=== PATIENT | male | born 1935 | race American Indian/Alaskan Native ===

== ENCOUNTER 2021-06-03 11:23 | Inpatient (IN) ==
[2021-06-03] MEDS ORDERED: 0.9 % SODIUM CHLORIDE 1,000 ML IV ONE ×3 (11:40→13:37)
[2021-06-03 11:58] LABS: POC Calcium, Ionized 1.17 mmEq/L (1.16-1.32); POC Creatinine 1.5 mg/dL (0.6-1.2); POC Potassium 4.9 mEql/L (3.3-5.1)
[2021-06-03 12:07] LABS: POC INR 1.8 (0.8-1.2); POC Pro Time 20.8 sec (11.9-14.5)
--- NOTE | 2021-06-03 12:24 | XRay Report ---
INDICATION: AMS, hypoxia TECHNIQUE: AP portable semiupright chest x-ray COMPARISON: Previous chest x-rays dated 02/28/2020, 12/30/2016 FINDINGS:Suboptimal evaluation due to difficulty in positioning this patient. Lungs:No focal parenchymal infiltrate or mass. Heart, vascular:Heart size is considered to be within normal limits for AP semiupright positioning. No evidence for congestive heart failure Mediastinum, suzanne:No mediastinal widening. No hilar mass Pleura:No pleural fluid. No pleural-based mass or calcification Skeletal:Negative. IMPRESSION: No acute or focal abnormality Interpreted and Authenticated by: Venu Coffman 06/03/21
--- NOTE | 2021-06-03 12:31 | Emergency Department Note ---
HPI General Chief complaint: Shortness of Breath/Dyspnea Stated complaint: Shortness of breath Time Seen by Provider: 06/03/21 11:40 Source: family Mode of arrival: wheelchair Limitations: altered mental status History of Present Illness HPI Narrative: 85-year-old male with past medical history of COPD, CHF, CKD, diabetes, hypertension, chronic bilateral venous stasis edema, and atrial fibrillation on warfarin presenting with cough and altered mental status. Patient reportedly has had about 5 days of cough and congestion. This morning he seemed more short of breath with "rattled breathing" and was more confused than usual. He has a history of COPD and is supposed to be using oxygen at home but is not always compliant. No fever or recent falls. Patient is somnolent in the room and is not able to answer any questions. He reportedly just finished a course of antibiotics for a wound in the buttock area. Related Data Home Medications Medication Instructions Recorded Confirmed brimonidine 0.15 % eye drops 1 drp OPHTHALMIC BID ml 12/08/15 03/14/20 cetirizine 10 mg tablet (All Day 10 mg PO QHS tab 12/08/15 03/14/20 Allergy (cetirizine)) cyanocobalamin (vitamin B-12) 1,000 mcg PO QDAY 12/08/15 03/14/20 1,000 mcg tablet (Vitamin B-12) metformin 500 mg tablet 500 mg PO BID 12/08/15 03/14/20 simvastatin 40 mg tablet 40 mg PO QPM 12/08/15 03/14/20 sitagliptin 100 mg tablet 100 mg PO QDAY 12/08/15 03/14/20 timolol 0.5 % eye drops 1 drp OPHTHALMIC .QD ml 12/08/15 03/14/20 tiotropium bromide 18 mcg capsule 1 cap INHALATION QDAY 12/08/15 03/14/20 with inhalation device (Spiriva with HandiHaler) torsemide 20 mg tablet 20 mg PO QDAY 12/08/15 03/14/20 magnesium L-lactate 84 mg 168 mg PO BID tab 06/11/18 03/14/20 tablet,extended release (MagBid ER) warfarin 2 mg tablet See Rx Instructions PO QDAY tab 06/11/18 03/14/20 carvedilol 3.125 mg tablet 6.25 mg PO BID tab 12/18/18 03/14/20 insulin glargine 100 unit/mL 28 unit SUB-Q QDAY ml 12/18/18 03/14/20 subcutaneous solution lisinopril 2.5 mg tablet 2.5 mg PO QDAY 12/18/18 03/14/20 Previous Rx's Medication Instructions Recorded ergocalciferol (vitamin D2) 1,250 50,000 unit PO QWEEK #10 cap 12/17/17 mcg (50,000 unit) capsule Allergies Allergy/AdvReac Type Severity Reaction Status Date / Time Amoxicillin Allergy Unknown Unknown Verified 06/03/21 11:32 Cefadroxil [From Duricef] Allergy Unknown Unknown Verified 06/03/21 11:32 Rosiglitazone [From Avandia] Allergy Unknown Unknown Verified 06/03/21 11:32 Review of Systems ROS ROS Narrative: Narrative: Limitations: ROS unobtainable due to patients medical condition Constitutional: Denies fever Respiratory: Reports shortness of breath and cough Gastrointestinal: Denies vomiting PFSH Narrative Patient History Narrative: Narrative: Medical/Surgical/Family History All Active Problems (Updated 06/03/21 @ 15:17 by Jose Solis MD) Medication requested (Acute) Hypercapnic respiratory failure (Acute) 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) Hyperkalemia, diminished renal excretion (Chronic) CKD (chronic kidney disease) stage 3, GFR 30-59 ml/min (Chronic) Ptosis of eyelid, right (Chronic) Swelling of right eyelid (Chronic) Shortness of breath (Chronic) Venous stasis (Chronic) Chronic kidney disease due to type 2 diabetes mellitus (Chronic) Open wound of left lower leg (Chronic) Cellulitis (Chronic) Dermatitis (Chronic) Atrial fibrillation (Chronic) History of anticoagulant therapy (Chronic) Hypomagnesemia (Chronic) Edema (Chronic) History of varicose veins (Chronic) B12 deficiency (Chronic) Vitamin D deficiency (Chronic) Abdominal hernia (Chronic) Diabetic peripheral neuropathy (Chronic) Ingrown toenail (Chronic) CHF (congestive heart failure) (Chronic) Chronic obstructive lung disease (Chronic) Pulmonary infarction (Chronic) Type 2 diabetes mellitus, uncontrolled (Chronic) Sleep apnea (Chronic) Severe obesity (Chronic) Hyperlipidemia (Chronic) Essential hypertension (Chronic) Arthritis of hip (Chronic) Arthritis of knee (Chronic) Glaucoma (Chronic) Medical History Abdominal hernia Arthritis of hip Arthritis of knee Atrial fibrillation B12 deficiency Cellulitis CHF (congestive heart failure) Chronic kidney disease due to type 2 diabetes mellitus Chronic obstructive lung disease CKD (chronic kidney disease) stage 3, GFR 30-59 ml/min Dermatitis Diabetic peripheral neuropathy Edema Essential hypertension Glaucoma History of anticoagulant therapy History of varicose veins Hyperkalemia, diminished renal excretion Hyperlipidemia 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 chronic kidney disease due to type 2 diabetes mellitus Hypomagnesemia Ingrown toenail Open wound of left lower leg Ptosis of eyelid, right Pulmonary infarction Secondary hyperparathyroidism of renal origin Severe obesity Shortness of breath Sleep apnea Swelling of right eyelid Type 2 diabetes mellitus, uncontrolled Venous stasis Vitamin D deficiency Surgical History History of biopsy History of colonoscopy History of cystoscopy History of prostate surgery History of total knee arthroplasty S/P debridement Debride Nail/Bed/Fold Family History Other No pertinent family history Social History Smoking Status: Former smoker Alcohol Intake Frequency: does not drink Substance Use: does not use Exam Narrative Narrative: Narrative: General Limitations: altered mental status General appearance: Present other (somnolent, responds to pain, breathing spontaneously and protecting airway) Head Head: Present atraumatic and normocephalic Eye Eye: Present normal appearance, PERRL and EOMI; Absent scleral icterus or conjunctival injection ENT ENT: Present mucous membranes moist Neck Neck: Present normal inspection and trachea midline; Absent lymphadenopathy Chest Chest: Present symmetric chest wall rise Respiratory Respiratory: Present other (diminished BS bilaterally); Absent respiratory distress, wheezes, stridor, accessory muscle use or prolonged expiratory phase Cardiovascular Cardiovascular: Present regular rate and normal rhythm; Absent systolic murmur or diastolic murmur Adbominal Abdominal: Present soft; Absent distention, tenderness, guarding, rebound, rigidity, organomegaly or mass Extremities Extremities: Present other (bilateral LE venous stasis present) Back Back: Present other (Healing scab over the right buttock near the gluteal fold with no erythema, warmth, or underlying fluctuance noted) Neurological Neurological: Present other (somnelent, intermittently arousable; moving all extremities, no facial droop) Skin Skin: Present warm (WNL) and dry Course Vital Signs Vital signs: Vital Signs Temperature 97.6 F 06/03/21 11:23 Pulse Rate 58 L 06/03/21 11:23 Respiratory Rate 20 06/03/21 11:23 Blood Pressure 53/26 06/03/21 11:23 Pulse Oximetry (%) 98 06/03/21 11:23 Temperature 97.6 F 06/03/21 16:06 Pulse Rate 90 06/03/21 16:06 Respiratory Rate 17 06/03/21 16:06 Blood Pressure 111/69 06/03/21 16:06 Pulse Oximetry (%) 97 06/03/21 16:06 MDM MDM Narrative Medical decision making narrative: 85-year-old male presenting with cough and altered mental status. On arrival to the ED patient is somnolent and hypotensive to 70s over 40s. 30mL/kg normal saline bolus ordered. Satting mid 80s on room air, placed on nonrebreather mask. EKG shows afib with no ischemic changes. Initial VBG shows a pH of 7.25, PCO2 of 85, and PO2 of 50. Patient transition to CPAP with improvement in mental status as he now awake and will answer some questions. Labs notable for hyponatremia to 131, JAZZMINE to 1.4, and mild hyperkalemia to 5.2. No peaked T waves on EKG. Lactate is 5.0. Blood cultures ordered. Will start vancomycin and levofloxacin as patient has an allergy to amoxicillin. Chest x-ray shows no focal infiltrate. Ammonia level is 69. INR is 1.7. BNP is 1951. Likely seps is and hypercapnic respiratory failure. Covid and influenza tests are negative. Patient appears to be doing much better on CPAP. Will repeat lactate and ABG after fluids. UA is pending. Blood pressure improving with IV fluids. Plan for reevaluation and admission. 1510: Repeat ABG shows a pH of 7.22 and an increase in PCO2 to 94 with a PO2 of 75. He clinically appears much better and more awake, however given these findings, patient was placed on BiPAP at 14/6. DuoNeb and IV Solu-Medrol o rdered for possible COPD exacerbation. Repeat lactate after 3 L normal saline is 0.7. 1515: Patient is stable on BiPAP, satting 92-96%. Endorsed to Dr. Matias for admission to the ICU. Lab Data Lab results reviewed: Yes I reviewed the patient's lab results. Result diagrams: 06/03/21 11:35 06/03/21 11:35 Labs: Lab Results 06/03/21 06/03/21 06/03/21 Range/Units 11:35 11:35 11:35 WBC 7.7 (4.5-11.0) K/mcL RBC 4.49 L (4.63-6.08) M/mcL Hgb 14.0 (13.7-17.5) g/dL Hct 41.8 (40.1-51.0) % POC Hct (41-55) % MCV 93.1 (80.0-100.0) fL MCH 31.2 (26.0-34.0) pg MCHC 33.5 (31.0-36.0) g/dL RDW 13.8 (11.5-14.5) % Plt Count 170 (140-440) K/mcL MPV 10.0 (7.4-10.4) fL Neut % (Auto) 67.1 (38.0-78.0) % Lymph % (Auto) 18.9 (15.5-49.0) % Holt % (Auto) 12.6 H (1.0-12.0) % Eos % (Auto) 0.9 (0.0-7.0) % Baso % (Auto) 0.5 (0.0-2.0) % Lymph # (Auto) 1.45 L (1.50-4.80) K/mcL Holt # (Auto) 0.97 H (0.10-0.90) K/mcL Eos # (Auto) 0.07 (0.00-0.70) K/mcL Baso # (Auto) 0.04 (0.00-0.30) K/mcL Absolute Neutrophils 5.15 (1.80-8.00) K/mcL POC PT (11.9-14.5) sec PT (11.9-14.5) sec POC INR (0.8-1.2) INR (0.9-1.1) APTT (20.0-37.0) sec VBG Lactic Acid (0.5-2.0) mmol/L POC Sodium (133-145) mEq/L Sodium 131 L (133-145) mmol/L POC Potassium (3.3-5.1) mEql/L Potassium 5.2 H (3.3-5.1) mmol/L POC Chloride (96-108) mEq/L Chloride 90 L (96-108) mmol/L Carbon Dioxide 28 (22-30) mmol/L POC Total CO2 (22-30) mmol/L Anion Gap 13.0 (8.0-16.0) POC BUN (6-20) mg/dL BUN 36 H (8-23) mg/dL Creatinine 1.4 H (0.7-1.2) mg/dL POC Creatinine (0.6-1.2) mg/dL GFR Calculation 45 Glucose 270 H (70-105) mg/dL POC Glucose (70-105) mg/dL Calcium 8.8 (8.6-10.4) mg/dL POC WB Ioniz Calcium (1.16-1.32) mmEq/L Total Bilirubin 1.3 H (0.1-1.0) mg/dL AST 28 (<40) U/L ALT 24 (<40) U/L Alkaline Phosphatase 135 H (39-117) U/L Ammonia (16-60) umol/L Troponin T 0.01 (<0.03) ng/mL NT-Pro-B Natriuret Pep 1951.0 H (<450.0) pg/mL Total Protein 7.6 (5.9-8.4) gm/dL Albumin 3.3 (3.2-5.2) gm/dL Globulin 4.3 H (2.2-3.7) gm/dL Albumin/Globulin Ratio 0.8 L (1.0-2.3) Procalcitonin (<0.10) ng/mL Urine Color Urine Appearance (Clear) Urine pH (5.0-9.0) Ur Specific Hustler (1.000-1.035) Urine Protein (Negative) mg/dL Urine Glucose (UA) (Negative) mg/dL Urine Ketones (Negative) mg/dL Urine Occult Blood (Negative) mg/dL Urine Nitrate (Negative) Urine Bilirubin (Negative) mg/dL Urine Urobilinogen mg/dL Ur Leukocyte Esterase (Negative) /uL Urine RBC (0-3) /hpf Urine WBC (0-4) /hpf Ur Squamous Epith Cells (0-4) /hpf Urine Bacteria (0) /hpf Hyaline Casts (0-2) /lph Urine Mucus (None) /hpf Ur Culture Indicated? Ethyl Alcohol (<0.010) gm/dL 06/03/21 06/03/21 06/03/21 Range/Units 11:35 11:35 11:35 WBC (4.5-11.0) K/mcL RBC (4.63-6.08) M/mcL Hgb (13.7-17.5) g/dL Hct (40.1-51.0) % POC Hct (41-55) % MCV (80.0-100.0) fL MCH (26.0-34.0) pg MCHC (31.0-36.0) g/dL RDW (11.5-14.5) % Plt Count (140-440) K/mcL MPV (7.4-10.4) fL Neut % (Auto) (38.0-78.0) % Lymph % (Auto) (15.5-49.0) % Holt % (Auto) (1.0-12.0) % Eos % (Auto) (0.0-7.0) % Baso % (Auto) (0.0-2.0) % Lymph # (Auto) (1.50-4.80) K/mcL Holt # (Auto) (0.10-0.90) K/mcL Eos # (Auto) (0.00-0.70) K/mcL Baso # (Auto) (0.00-0.30) K/mcL Absolute Neutrophils (1.80-8.00) K/mcL POC PT (11.9-14.5) sec PT 20.4 H (11.9-14.5) sec POC INR (0.8-1.2) INR 1.7 H (0.9-1.1) APTT 36.4 (20.0-37.0) sec VBG Lactic Acid 5.0 H* (0.5-2.0) mmol/L POC Sodium (133-145) mEq/L Sodium (133-145) mmol/L POC Potassium (3.3-5.1) mEql/L Potassium (3.3-5.1) mmol/L POC Chloride (96-108) mEq/L Chloride (96-108) mmol/L Carbon Dioxide (22-30) mmol/L POC Total CO2 (22-30) mmol/L Anion Gap (8.0-16.0) POC BUN (6-20) mg/dL BUN (8-23) mg/dL Creatinine (0.7-1.2) mg/dL POC Creatinine (0.6-1.2) mg/dL GFR Calculation Glucose (70-105) mg/dL POC Glucose (70-105) mg/dL Calcium (8.6-10.4) mg/dL POC WB Ioniz Calcium (1.16-1.32) mmEq/L Total Bilirubin (0.1-1.0) mg/dL AST (<40) U/L ALT (<40) U/L Alkaline Phosphatase (39-117) U/L Ammonia (16-60) umol/L Troponin T (<0.03) ng/mL NT-Pro-B Natriuret Pep (<450.0) pg/mL Total Protein (5.9-8.4) gm/dL Albumin (3.2-5.2) gm/dL Globulin (2.2-3.7) gm/dL Albumin/Globulin Ratio (1.0-2.3) Procalcitonin 0.09 (<0.10) ng/mL Urine Color Urine Appearance (Clear) Urine pH (5.0-9.0) Ur Specific Hustler (1.000-1.035) Urine Protein (Negative) mg/dL Urine Glucose (UA) (Negative) mg/dL Urine Ketones (Negative) mg/dL Urine Occult Blood (Negative) mg/dL Urine Nitrate (Negative) Urine Bilirubin (Negative) mg/dL Urine Urobilinogen mg/dL Ur Leukocyte Esterase (Negative) /uL Urine RBC (0-3) /hpf Urine WBC (0-4) /hpf Ur Squamous Epith Cells (0-4) /hpf Urine Bacteria (0) /hpf Hyaline Casts (0-2) /lph Urine Mucus (None) /hpf Ur Culture Indicated? Ethyl Alcohol (<0.010) gm/dL 06/03/21 06/03/21 06/03/21 Range/Units 11:35 11:35 11:35 WBC (4.5-11.0) K/mcL RBC (4.63-6.08) M/mcL Hgb (13.7-17.5) g/dL Hct (40.1-51.0) % POC Hct 43 (41-55) % MCV (80.0-100.0) fL MCH (26.0-34.0) pg MCHC (31.0-36.0) g/dL RDW (11.5-14.5) % Plt Count (140-440) K/mcL MPV (7.4-10.4) fL Neut % (Auto) (38.0-78.0) % Lymph % (Auto) (15.5-49.0) % Holt % (Auto) (1.0-12.0) % Eos % (Auto) (0.0-7.0) % Baso % (Auto) (0.0-2.0) % Lymph # (Auto) (1.50-4.80) K/mcL Holt # (Auto) (0.10-0.90) K/mcL Eos # (Auto) (0.00-0.70) K/mcL Baso # (Auto) (0.00-0.30) K/mcL Absolute Neutrophils (1.80-8.00) K/mcL POC PT (11.9-14.5) sec PT (11.9-14.5) sec POC INR (0.8-1.2) INR (0.9-1.1) APTT (20.0-37.0) sec VBG Lactic Acid (0.5-2.0) mmol/L POC Sodium 135 (133-145) mEq/L Sodium (133-145) mmol/L POC Potassium 4.9 (3.3-5.1) mEql/L Potassium (3.3-5.1) mmol/L POC Chloride 94 L (96-108) mEq/L Chloride (96-108) mmol/L Carbon Dioxide (22-30) mmol/L POC Total CO2 31 H (22-30) mmol/L Anion Gap (8.0-16.0) POC BUN 38 H (6-20) mg/dL BUN (8-23) mg/dL Creatinine (0.7-1.2) mg/dL POC Creatinine 1.5 H (0.6-1.2) mg/dL GFR Calculation Glucose (70-105) mg/dL POC Glucose 286 H (70-105) mg/dL Calcium (8.6-10.4) mg/dL POC WB Ioniz Calcium 1.17 (1.16-1.32) mmEq/L Total Bilirubin (0.1-1.0) mg/dL AST (<40) U/L ALT (<40) U/L Alkaline Phosphatase (39-117) U/L Ammonia 69 H (16-60) umol/L Troponin T (<0.03) ng/mL NT-Pro-B Natriuret Pep (<450.0) pg/mL Total Protein (5.9-8.4) gm/dL Albumin (3.2-5.2) gm/dL Globulin (2.2-3.7) gm/dL Albumin/Globulin Ratio (1.0-2.3) Procalcitonin (<0.10) ng/mL Urine Color Urine Appearance (Clear) Urine pH (5.0-9.0) Ur Specific Hustler (1.000-1.035) Urine Protein (Negative) mg/dL Urine Glucose (UA) (Negative) mg/dL Urine Ketones (Negative) mg/dL Urine Occult Blood (Negative) mg/dL Urine Nitrate (Negative) Urine Bilirubin (Negative) mg/dL Urine Urobilinogen mg/dL Ur Leukocyte Esterase (Negative) /uL Urine RBC (0-3) /hpf Urine WBC (0-4) /hpf Ur Squamous Epith Cells (0-4) /hpf Urine Bacteria (0) /hpf Hyaline Casts (0-2) /lph Urine Mucus (None) /hpf Ur Culture Indicated? Ethyl Alcohol < 0.010 (<0.010) gm/dL 06/03/21 06/03/21 Range/Units 11:55 14:03 WBC (4.5-11.0) K/mcL RBC (4.63-6.08) M/mcL Hgb (13.7-17.5) g/dL Hct (40.1-51.0) % POC Hct (41-55) % MCV (80.0-100.0) fL MCH (26.0-34.0) pg MCHC (31.0-36.0) g/dL RDW (11.5-14.5) % Plt Count (140-440) K/mcL MPV (7.4-10.4) fL Neut % (Auto) (38.0-78.0) % Lymph % (Auto) (15.5-49.0) % Holt % (Auto) (1.0-12.0) % Eos % (Auto) (0.0-7.0) % Baso % (Auto) (0.0-2.0) % Lymph # (Auto) (1.50-4.80) K/mcL Holt # (Auto) (0.10-0.90) K/mcL Eos # (Auto) (0.00-0.70) K/mcL Baso # (Auto) (0.00-0.30) K/mcL Absolute Neutrophils (1.80-8.00) K/mcL POC PT 20.8 H (11.9-14.5) sec PT (11.9-14.5) sec POC INR 1.8 H (0.8-1.2) INR (0.9-1.1) APTT (20.0-37.0) sec VBG Lactic Acid (0.5-2.0) mmol/L POC Sodium (133-145) mEq/L Sodium (133-145) mmol/L POC Potassium (3.3-5.1) mEql/L Potassium (3.3-5.1) mmol/L POC Chloride (96-108) mEq/L Chloride (96-108) mmol/L Carbon Dioxide (22-30) mmol/L POC Total CO2 (22-30) mmol/L Anion Gap (8.0-16.0) POC BUN (6-20) mg/dL BUN (8-23) mg/dL Creatinine (0.7-1.2) mg/dL POC Creatinine (0.6-1.2) mg/dL GFR Calculation Glucose (70-105) mg/dL POC Glucose (70-105) mg/dL Calcium (8.6-10.4) mg/dL POC WB Ioniz Calcium (1.16-1.32) mmEq/L Total Bilirubin (0.1-1.0) mg/dL AST (<40) U/L ALT (<40) U/L Alkaline Phosphatase (39-117) U/L Ammonia (16-60) umol/L Troponin T (<0.03) ng/mL NT-Pro-B Natriuret Pep (<450.0) pg/mL Total Protein (5.9-8.4) gm/dL Albumin (3.2-5.2) gm/dL Globulin (2.2-3.7) gm/dL Albumin/Globulin Ratio (1.0-2.3) Procalcitonin (<0.10) ng/mL Urine Color Yellow Urine Appearance Clear (Clear) Urine pH 6.0 (5.0-9.0) Ur Specific Hustler 1.008 (1.000-1.035) Urine Protein Negative (Negative) mg/dL Urine Glucose (UA) Negative (Negative) mg/dL Urine Ketones Negative (Negative) mg/dL Urine Occult Blood 0.03 (Negative) mg/dL Urine Nitrate Negative (Negative) Urine Bilirubin Negative (Negative) mg/dL Urine Urobilinogen Negative mg/dL Ur Leukocyte Esterase Negative (Negative) /uL Urine RBC 0 (0-3) /hpf Urine WBC 0 (0-4) /hpf Ur Squamous Epith Cells < 1 (0-4) /hpf Urine Bacteria None (0) /hpf Hyaline Casts 24 H (0-2) /lph Urine Mucus Few A (None) /hpf Ur Culture Indicated? No Ethyl Alcohol (<0.010) gm/dL ED POC Tests ED POC Tests: FELIPA - Influenza A Negative FELIPA - Influenza B Negative FELIPA - SARS Antigen Negative Radiology Data Radiology results reviewed: Yes I reviewed the patient's radiology results. Radiology results narrative: Ordering Physician:Jose Solis M.D. Date of Service:06/03/21 Procedure(s):XR chest 1V portable INDICATION: AMS, hypoxia TECHNIQUE: AP portable semiupright chest x-ray COMPARISON: Previous chest x-rays dated 02/28/2020, 12/30/2016 FINDINGS:Suboptimal evaluation due to difficulty in positioning this patient. Lungs:No focal parenchymal infiltrate or mass. Heart, vascular:Heart size is considered to be within normal limits for AP semiupright positioning. No evidence for congestive heart failure Mediastinum, suzanne:No mediastinal widening. No hilar mass Pleura:No pleural fluid. No pleural-based mass or calcification Skeletal:Negative. IMPRESSION: No acute or focal abnormality Interpreted and Authenticated by: Venu Coffman 06/03/21 Ordering Physician:Jose Solis M.D. Date of Service:06/03/21 Procedure(s):CT head/brain wo con INDICATION: AMS COMPARISON: None. TECHNIQUE: Axial noncontrast-enhanced images through the brain. Sagittally and coronally reformatted images. FINDINGS: Cerebral hemispheres:Negative. No intra-axial abnormality. No intra-axial hematoma. No localized mass effect. There is cerebral atrophy. This is considered age-appropriate for this 85-year-old patient Brainstem and cerebellum:No intra-axial abnormality Extra-axial:No acute hemorrhage. No subdural or epidural hematoma. No subarachnoid hemorrhage. Basilar cisterns are normal Calvarial:No calvarial fracture. No lytic lesion Temporal bones are negative. No destructive lesions Soft tissue, orbits, sinuses:There is near complete opacification of the right maxillary sinus consistent with sinusitis IMPRESSION: 1. No acute intracranial abnormality 2. Right maxillary sinusitis The exam was performed using radiation dose optimization techniques including, but not limited to, automated exposure control, adjustment of the mA and/or kV according to patient size and use of iterative reconstruction technique. Interpreted and Authenticated by: Venu Coffman 06/03/21 EKG Data EKG #1: EKG attestation: Yes I reviewed and interpreted this EKG. and Yes There are no EKG findings of acute coronary syndrome EKG results narrative: Atrial fibrillation at 102 bpm. Occasional PVC noted. No ST elevation or depression. No peaked T waves. Interpretation: no acute changes CC TIME Critical Care Time Critical Care Time: Yes Total Critical Care Time: 30 Attestation: Greater than 30 minutes of critical care time (excluding procedures) were utilized in the evaluation, management, consultation, and treatment of this patient's life-threatening hypercapnic respiratory failure. Discharge Plan Patient/Caregiver Discharge Instructions Pt seen by NURSE WOUND CARE/PA only: No Clinical Impression: Hypercapnic respiratory failure Patient Disposition: Xfer As Inpt ([facility]) Condition: Fair Discharge Date/Time: 06/03/21 15:56
[2021-06-03 12:34] LABS: Basophils # (Auto) 0.04 K/mcL (0.00-0.30); Basophils % (Auto) 0.5 % (0.0-2.0); Eosinophils # (Auto) 0.07 K/mcL (0.00-0.70); Eosinophils % (Auto) 0.9 % (0.0-7.0); Hematocrit 41.8 % (40.1-51.0); Lymphocytes # (Auto) 1.45 K/mcL (1.50-4.80); Lymphocytes % (Auto) 18.9 % (15.5-49.0); Mean Cell Volume 93.1 fL (80.0-100.0); Mean Corpuscular HGB Conc 33.5 g/dL (31.0-36.0); Monocytes # (Auto) 0.97 K/mcL (0.10-0.90); Monocytes % (Auto) 12.6 % (1.0-12.0); Neutrophils % (Auto) 67.1 % (38.0-78.0); Platelet Count 170 K/mcL (140-440); RBC 4.49 M/mcL (4.63-6.08); Red Cell Distribution Width 13.8 % (11.5-14.5); WBC 7.7 K/mcL (4.5-11.0)
[2021-06-03 13:10] LABS: Alcohol, Blood < 10.0 mg/dL; Alcohol,Blood < 0.010 gm/dL (<0.010)
--- NOTE | 2021-06-03 13:10 | Cat Scan Report ---
INDICATION: AMS COMPARISON: None. TECHNIQUE: Axial noncontrast-enhanced images through the brain. Sagittally and coronally reformatted images. FINDINGS: Cerebral hemispheres:Negative. No intra-axial abnormality. No intra-axial hematoma. No localized mass effect. There is cerebral atrophy. This is considered age-appropriate for this 85-year-old patient Brainstem and cerebellum:No intra-axial abnormality Extra-axial:No acute hemorrhage. No subdural or epidural hematoma. No subarachnoid hemorrhage. Basilar cisterns are normal Calvarial:No calvarial fracture. No lytic lesion Temporal bones are negative. No destructive lesions Soft tissue, orbits, sinuses:There is near complete opacification of the right maxillary sinus consistent with sinusitis IMPRESSION: 1. No acute intracranial abnormality 2. Right maxillary sinusitis The exam was performed using radiation dose optimization techniques including, but not limited to, automated exposure control, adjustment of the mA and/or kV according to patient size and use of iterative reconstruction technique. Interpreted and Authenticated by: Venu Coffman 06/03/21
[2021-06-03 13:13] LABS: ALT/SGPT 24 U/L (<40); AST/SGOT 28 U/L (<40); Albumin 3.3 gm/dL (3.2-5.2); Albumin/Globulin Ratio 0.8 (1.0-2.3); Alkaline Phosphatase 135 U/L (39-117); Bilirubin,Total 1.3 mg/dL (0.1-1.0); Blood Urea Nitrogen 36 mg/dL (8-23); Calcium 8.8 mg/dL (8.6-10.4); Carbon Dioxide 28 mmol/L (22-30); Chloride 90 mmol/L (96-108); Globulin 4.3 gm/dL (2.2-3.7); Glomerular Filtration Rate 45; Glucose 270 mg/dL (70-105)
[2021-06-03 13:27] LABS: INR 1.7 (0.9-1.1); Partial Thromboplastin Time 36.4 sec (20.0-37.0); Prothrombin Time 20.4 sec (11.9-14.5)
[2021-06-03] MEDS ORDERED: VANCOMYCIN 1,000 MG in 0.9 % SODIUM CHLORIDE 250 ML IV ONE (13:47)
[2021-06-03] MEDS ORDERED: LEVOFLOXACIN 500 MG/100 ML BAG IV ONE (13:48)
[2021-06-03 14:57] LABS: Appearance,Urine CLEAR (Clear); Bilirubin,Urine Negative (Negative); Color,Urine YELLOW; Culture Indicated,Urine No; Glucose,Urine (UA) Negative (Negative); Ketones,Urine Negative (Negative); Leukocyte Esterase,Urine Negative /uL (Negative); Mucus,Urine FEW /hpf; Nitrate,Urine Negative (Negative); Protein,Urine Negative (Negative); Specific Gravity,Urine 1.008 (1.000-1.035); Urine Blood 0.03 mg/dL (Negative); Urine Hyaline Cast 24 /lph (0-2); Urine RBC 0 /hpf (0-3); Urine Squamous Epithelial Cell < 1 /hpf (0-4); Urine WBC 0 /hpf (0-4); Urobilinogen,Urine Negative
[2021-06-03] MEDS ORDERED: IPRATROPIUM/ALBUTEROL 3 ML AMPUL.NEB NEB ONE (14:59)
[2021-06-03] MEDS ORDERED: methylPREDNISolone SOD SUCC 125 MG/2 ML VIAL IV ONE (14:59)
--- NOTE | 2021-06-03 15:29 | Internal Med History&Physical ---
HPI History of Present Illness Patient information: Note initiated : 06/03/21 at 3:19 pm Service Date, if different from initiated Date: [] Patient: Josr Davila 85 y/o M admitted on for Shortness of breath. Chief Complaint: [] History of present illness: Mr. Davila is a 85 year old M Who came in with shortness of breath. About 4-5 days ago patient developed upper respiratory infection symptoms of increased mild cough and rhinorrhea. Over the course of the next days his cough became worse and was productive of yellow sputum. He became more short of breath. And also felt to have increasing wheeziness. This morning and his daughter saw him and he seemed quite lethargic and confused and was brought in the ED and found to be in 80s on room air. He does have history of COPD and was prescribed oxygen but does not wear it at home. In the ED is found to be hyper toxic and hypercapnic with a CO2 of 85-94 and a pH of 7.22-7.25. He is placed on BiPAP with improvement in his breathing alertness. Patient was also hypotensive when he came in in the 70s systolic which came up quickly with IV fluid. No leukocytosis or fevers. Lactate was quite high at 5. Likely with COPD exacerbation. Factious source unremarkable this time. Chest x-ray unremarkable. Other labs include a mild hyponatremia borderline high hyperkalemia. Creatinine elevated. Review of Systems: Pertinent positives as above plus chills and some diarrhea. Denies headache/fever/nausea/vomiting/chest or abdominal pain. 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) Hyperkalemia, diminished renal excretion (Chronic) CKD (chronic kidney disease) stage 3, GFR 30-59 ml/min (Chronic) Ptosis of eyelid, right (Chronic) Swelling of right eyelid (Chronic) Shortness of breath (Chronic) Venous stasis (Chronic) Chronic kidney disease due to type 2 diabetes mellitus (Chronic) Open wound of left lower leg (Chronic) Cellulitis (Chronic) Dermatitis (Chronic) Atrial fibrillation (Chronic) History of anticoagulant therapy (Chronic) Hypomagnesemia (Chronic) Edema (Chronic) History of varicose veins (Chronic) B12 deficiency (Chronic) Vitamin D deficiency (Chronic) Abdominal hernia (Chronic) Diabetic peripheral neuropathy (Chronic) Ingrown toenail (Chronic) CHF (congestive heart failure) (Chronic) Chronic obstructive lung disease (Chronic) Pulmonary infarction (Chronic) Type 2 diabetes mellitus, uncontrolled (Chronic) Sleep apnea (Chronic) Severe obesity (Chronic) Hyperlipidemia (Chronic) Essential hypertension (Chronic) Arthritis of hip (Chronic) Arthritis of knee (Chronic) Glaucoma (Chronic) Medical History Abdominal hernia Arthritis of hip Arthritis of knee Atrial fibrillation B12 deficiency Cellulitis CHF (congestive heart failure) Chronic kidney disease due to type 2 diabetes mellitus Chronic obstructive lung disease CKD (chronic kidney disease) stage 3, GFR 30-59 ml/min Dermatitis Diabetic peripheral neuropathy Edema Essential hypertension Glaucoma History of anticoagulant therapy History of varicose veins Hyperkalemia, diminished renal excretion Hyperlipidemia 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 chronic kidney disease due to type 2 diabetes mellitus Hypomagnesemia Ingrown toenail Open wound of left lower leg Ptosis of eyelid, right Pulmonary infarction Secondary hyperparathyroidism of renal origin Severe obesity Shortness of breath Sleep apnea Swelling of right eyelid Type 2 diabetes mellitus, uncontrolled Venous stasis Vitamin D deficiency Surgical History History of biopsy History of colonoscopy History of cystoscopy History of prostate surgery History of total knee arthroplasty S/P debridement Debride Nail/Bed/Fold Family History Other No pertinent family history Social History (Updated 03/14/20 @ 10:00 by Milagros Del Real) marital status: alcohol intake frequency: does not drink substance use type: does not use MEDS/ALLERGIES Home Medications and Allergies Home Medications Medication Instructions Recorded Confirmed Type brimonidine 0.15 % eye drops 1 drp OPHTHALMIC BID ml 12/08/15 03/14/20 History cetirizine 10 mg tablet (All Day 10 mg PO QHS tab 12/08/15 03/14/20 History Allergy (cetirizine)) cyanocobalamin (vitamin B-12) 1,000 mcg PO QDAY 12/08/15 03/14/20 History 1,000 mcg tablet (Vitamin B-12) metformin 500 mg tablet 500 mg PO BID 12/08/15 03/14/20 History simvastatin 40 mg tablet 40 mg PO QPM 12/08/15 03/14/20 History timolol 0.5 % eye drops 1 drp OPHTHALMIC .QD ml 12/08/15 03/14/20 History tiotropium bromide 18 mcg capsule 1 cap INHALATION QDAY 12/08/15 03/14/20 History with inhalation device (Spiriva with HandiHaler) torsemide 20 mg tablet 20 mg PO QDAY 12/08/15 03/14/20 History ergocalciferol (vitamin D2) 1,250 50,000 unit PO QWEEK #10 cap 12/17/17 03/14/20 Rx mcg (50,000 unit) capsule magnesium L-lactate 84 mg 168 mg PO BID tab 06/11/18 03/14/20 History tablet,extended release (MagBid ER) warfarin 2 mg tablet See Rx Instructions PO QDAY tab 06/11/18 03/14/20 History carvedilol 3.125 mg tablet 6.25 mg PO BID tab 12/18/18 03/14/20 History insulin glargine 100 unit/mL 28 unit SUB-Q QDAY ml 12/18/18 03/14/20 History subcutaneous solution lisinopril 2.5 mg tablet 2.5 mg PO QDAY 12/18/18 03/14/20 History acetaminophen 300 mg-codeine 30 mg 1 tab PO HS 06/03/21 06/03/21 History tablet sitagliptin 100 mg tablet (Januvia) 1 tab PO QDAY 06/03/21 06/03/21 History Allergies Allergy/AdvReac Type Severity Reaction Status Date / Time Amoxicillin Allergy Unknown Unknown Verified 06/03/21 11:32 Cefadroxil [From Duricef] Allergy Unknown Unknown Verified 06/03/21 11:32 Rosiglitazone [From Avandia] Allergy Unknown Unknown Verified 06/03/21 11:32 EXAM Constitutional Vitals: Temp Pulse Resp BP Pulse Ox 97.6 F 85 21 116/75 96 06/03/21 11:23 06/03/21 15:13 06/03/21 15:13 06/03/21 15:01 06/03/21 14:51 Exam: General: More awake now, no acute Distress Eyes/N/T: EOMI, PERRL, Head/Neck: neck supple, normocephalic atraumatic CV: RRR, No murmurs, normal s1/s2 Pulm: upper airway rhonchi, mild b/l wheezing Abd: soft, nontender, +BS x4 Ext: no clubbing/cyanosis, chronic venous stasis and edema b/l LE Neuro: Alert, no focal deficits, moves all extremities, CN 2-12 grossly intact, symmetrical strength b/l upper/lower, sensations intact b/l upper/lower Skin: warm/dry DATA Data Completed and Pending Labs: Labs from last 24 hours 06/03/21 06/03/21 06/03/21 14:03 11:55 11:35 WBC RBC Hgb Hct POC Hct 43 MCV MCH MCHC RDW Plt Count MPV Neut % (Auto) Lymph % (Auto) [place] % (Auto) Eos % (Auto) Baso % (Auto) Lymph # (Auto) [place] # (Auto) Eos # (Auto) Baso # (Auto) Absolute Neutrophils POC PT 20.8 H PT POC INR 1.8 H INR APTT VBG Lactic Acid POC Sodium 135 Sodium POC Potassium 4.9 Potassium POC Chloride 94 L Chloride Carbon Dioxide POC Total CO2 31 H Anion Gap POC BUN 38 H BUN Creatinine POC Creatinine 1.5 H GFR Calculation Glucose POC Glucose 286 H Calcium POC WB Ioniz Calcium 1.17 Total Bilirubin AST ALT Alkaline Phosphatase Ammonia Troponin T NT-Pro-B Natriuret Pep Total Protein Albumin Globulin Albumin/Globulin Ratio Procalcitonin Urine Color Yellow Urine Appearance Clear Urine pH 6.0 Ur Specific [place] 1.008 Urine Protein Negative Urine Glucose (UA) Negative Urine Ketones Negative Urine Occult Blood 0.03 Urine Nitrate Negative Urine Bilirubin Negative Urine Urobilinogen Negative Ur Leukocyte Esterase Negative Urine RBC 0 Urine WBC 0 Ur Squamous Epith Cells < 1 Urine Bacteria None Hyaline Casts 24 H Urine Mucus Few A Ur Culture Indicated? No Ethyl Alcohol 06/03/21 06/03/21 06/03/21 11:35 11:35 11:35 WBC RBC Hgb Hct POC Hct MCV MCH MCHC RDW Plt Count MPV Neut % (Auto) Lymph % (Auto) [place] % (Auto) Eos % (Auto) Baso % (Auto) Lymph # (Auto) [place] # (Auto) Eos # (Auto) Baso # (Auto) Absolute Neutrophils POC PT PT POC INR INR APTT VBG Lactic Acid POC Sodium Sodium POC Potassium Potassium POC Chloride Chloride Carbon Dioxide POC Total CO2 Anion Gap POC BUN BUN Creatinine POC Creatinine GFR Calculation Glucose POC Glucose Calcium POC WB Ioniz Calcium Total Bilirubin AST ALT Alkaline Phosphatase Ammonia 69 H Troponin T NT-Pro-B Natriuret Pep Total Protein Albumin Globulin Albumin/Globulin Ratio Procalcitonin 0.09 Urine Color Urine Appearance Urine pH Ur Specific [place] Urine Protein Urine Glucose (UA) Urine Ketones Urine Occult Blood Urine Nitrate Urine Bilirubin Urine Urobilinogen Ur Leukocyte Esterase Urine RBC Urine WBC Ur Squamous Epith Cells Urine Bacteria Hyaline Casts Urine Mucus Ur Culture Indicated? Ethyl Alcohol < 0.010 06/03/21 06/03/21 06/03/21 11:35 11:35 11:35 WBC RBC Hgb Hct POC Hct MCV MCH MCHC RDW Plt Count MPV Neut % (Auto) Lymph % (Auto) [place] % (Auto) Eos % (Auto) Baso % (Auto) Lymph # (Auto) [place] # (Auto) Eos # (Auto) Baso # (Auto) Absolute Neutrophils POC PT PT 20.4 H POC INR INR 1.7 H APTT 36.4 VBG Lactic Acid 5.0 H* POC Sodium Sodium POC Potassium Potassium POC Chloride Chloride Carbon Dioxide POC Total CO2 Anion Gap POC BUN BUN Creatinine POC Creatinine GFR Calculation Glucose POC Glucose Calcium POC WB Ioniz Calcium Total Bilirubin AST ALT Alkaline Phosphatase Ammonia Troponin T 0.01 NT-Pro-B Natriuret Pep Total Protein Albumin Globulin Albumin/Globulin Ratio Procalcitonin Urine Color Urine Appearance Urine pH Ur Specific [place] Urine Protein Urine Glucose (UA) Urine Ketones Urine Occult Blood Urine Nitrate Urine Bilirubin Urine Urobilinogen Ur Leukocyte Esterase Urine RBC Urine WBC Ur Squamous Epith Cells Urine Bacteria Hyaline Casts Urine Mucus Ur Culture Indicated? Ethyl Alcohol 06/03/21 06/03/21 11:35 11:35 WBC 7.7 RBC 4.49 L Hgb 14.0 Hct 41.8 POC Hct MCV 93.1 MCH 31.2 MCHC 33.5 RDW 13.8 Plt Count 170 MPV 10.0 Neut % (Auto) 67.1 Lymph % (Auto) 18.9 [place] % (Auto) 12.6 H Eos % (Auto) 0.9 Baso % (Auto) 0.5 Lymph # (Auto) 1.45 L [place] # (Auto) 0.97 H Eos # (Auto) 0.07 Baso # (Auto) 0.04 Absolute Neutrophils 5.15 POC PT PT POC INR INR APTT VBG Lactic Acid POC Sodium Sodium 131 L POC Potassium Potassium 5.2 H POC Chloride Chloride 90 L Carbon Dioxide 28 POC Total CO2 Anion Gap 13.0 POC BUN BUN 36 H Creatinine 1.4 H POC Creatinine GFR Calculation 45 Glucose 270 H POC Glucose Calcium 8.8 POC WB Ioniz Calcium Total Bilirubin 1.3 H AST 28 ALT 24 Alkaline Phosphatase 135 H Ammonia Troponin T NT-Pro-B Natriuret Pep 1951.0 H Total Protein 7.6 Albumin 3.3 Globulin 4.3 H Albumin/Globulin Ratio 0.8 L Procalcitonin Urine Color Urine Appearance Urine pH Ur Specific [place] Urine Protein Urine Glucose (UA) Urine Ketones Urine Occult Blood Urine Nitrate Urine Bilirubin Urine Urobilinogen Ur Leukocyte Esterase Urine RBC Urine WBC Ur Squamous Epith Cells Urine Bacteria Hyaline Casts Urine Mucus Ur Culture Indicated? Ethyl Alcohol A/P Narrative A/P Narrative: A: *Acute hypoxic/hypercapnic respiratory failure: Likely 2/2 AECOPD -on bipap -CXR neg *Encephalopathy: 2/2 above *AECOPD (is prescribed home O2 but does not wear) *Lactic acidosis: 2/2 above *Hypotension: Resolved in ED *Hyponatremia, mild: *Hyperkalemia, mild: *A. fib: On BB/warfarin *CKD III: *HTN: On Coreg/lisinopril *DM w/neuropathy: *Venous stasis LE's: P: -Bipap, wean -vbg and f/u lactate -steroids(wean), nebs, IS/Acapella -Empiric antibiotics -r/o thrombosis with dimer, -Follow-up electrolytes and renal function -Hold home torsemide -cont BB as long as BP remains stable -basal and SSI, hold metformin - -PT/OT -CM for placement needs -Home medication reconciliation -ppx: Warfarin per pharmacy Time Spent With Patient Time: Total time spent is greater than 50% in coordination of care (as documented) at patient's floor/unit and/or counseling patient: Total time spent with greater than 50% in coordination of care (as documented) at patient's floor/unit and/or counseling patient:: Greater than 70 minutes
[2021-06-03] MEDS ORDERED: POTASSIUM CHLORIDE 40 MEQ in DEXTROSE 5% IN WATER 500 ML IV PRN (16:20)
[2021-06-03] MEDS ORDERED: ACETAMINOPHEN 325 MG TABLET PO PRN (16:20)
[2021-06-03] MEDS ORDERED: DEXTROSE 31 GM ORAL.SUSP PO PRN (16:20)
[2021-06-03] MEDS ORDERED: POLYETHYLENE GLYCOL 3350 17 GM PACKET PO PRN (16:20)
[2021-06-03] MEDS ORDERED: ONDANSETRON 4 MG/2 ML VIAL IV PRN (16:20)
[2021-06-03] MEDS ORDERED: METOCLOPRAMIDE 10 MG/2 ML VIAL IV PRN (16:20)
[2021-06-03] MEDS ORDERED: MAGNESIUM SULFATE 2 GM/50 ML BAG IV PRN (16:20)
[2021-06-03] MEDS ORDERED: IPRATROPIUM/ALBUTEROL 3 ML AMPUL.NEB NEB PRN (16:20)
[2021-06-03] MEDS ORDERED: SENNOSIDES 1 TABLET PO PRN (16:20)
[2021-06-03] MEDS ORDERED: METOPROLOL TARTRATE 5 MG/5 ML VIAL IV PRN (16:20)
[2021-06-03] MEDS ORDERED: POTASSIUM CHLORIDE 20 MEQ TABLET PO PRN ×2 (16:20)
[2021-06-03] MEDS ORDERED: DEXTROSE 50% 50 ML VIAL IV PRN (16:20)
[2021-06-03 16:53] LABS: Hemoglobin A1C 7.5 % Hgb (4.0-6.0)
--- NOTE | 2021-06-03 17:55 | Ultrasound Report ---
INDICATION: r/o dvt COMPARISON: None. TECHNIQUE: Grayscale and color flow Doppler spectral imaging of the deep venous system in both lower extremities. FINDINGS: Negative examination. No evidence for deep venous thrombosis. Negative bilateral common femoral veins, femoral veins, popliteal veins. Posterior tibial veins and peroneal veins are negative. Greater and lesser saphenous veins are negative. IMPRESSION: Negative examination for deep venous thrombosis, bilateral lower extremities. Interpreted and Authenticated by: Venu Coffman 06/03/21
[2021-06-03] MEDS ORDERED: ENOXAPARIN 100 MG/ML SYRINGE SQ ONE (18:00)
[2021-06-03] MEDS: IPRATROPIUM/ALBUTEROL 3 ML AMPUL.NEB NEB SCH (18:31)
[2021-06-03] MEDS: INSULIN LISPRO 1 UNIT/0.01 ML UNIT SQ SCH ×2 (18:35→21:34)
[2021-06-03] MEDS ORDERED: WARFARIN 2 MG TABLET PO ONE (19:00)
[2021-06-03] MEDS: AZITHROMYCIN 500 MG in DEXTROSE 5% IN WATER 250 ML IV SCH (19:13)
[2021-06-03] MEDS ORDERED: LACTATED RINGERS 250 ML IV ONE (20:27)
[2021-06-03] MEDS: methylPREDNISolone SOD SUCC 125 MG/2 ML VIAL IV SCH (21:33)
[2021-06-03] MEDS: 0.9 % SODIUM CHLORIDE 10 ML SYRINGE IV SCH (21:33)
[2021-06-03] MEDS ORDERED: LORATADINE 10 MG TABLET PO PRN (21:38)
[2021-06-03] MEDS ORDERED: ACETAMINOPHEN W/CODEINE #3 1 TABLET PO PRN (21:38)
[2021-06-03] MEDS ORDERED: INSULIN GLARGINE, HUMAN 1 UNIT/0.01 ML SQ ONE (22:25)
[2021-06-03] MEDS: SIMVASTATIN 40 MG TABLET PO SCH (22:25)
[2021-06-03] MEDS: INSULIN GLARGINE, HUMAN 1 UNIT/0.01 ML SQ SCH (22:26)
[2021-06-03] MEDS: OSELTAMIVIR PHOSPHATE 75 MG CAPSULE PO SCH (23:04)
[2021-06-04] MEDS: IPRATROPIUM/ALBUTEROL 3 ML AMPUL.NEB NEB SCH ×4 (00:59→18:45)
[2021-06-04] MEDS: 0.9 % SODIUM CHLORIDE 10 ML SYRINGE IV SCH ×3 (05:16→22:05)
[2021-06-04] MEDS: methylPREDNISolone SOD SUCC 125 MG/2 ML VIAL IV SCH (05:16)
[2021-06-04 07:15] LABS: INR 1.8 (0.9-1.1)
[2021-06-04 07:37] LABS: ALT/SGPT 29 U/L (<40); AST/SGOT 33 U/L (<40); Albumin 2.4 gm/dL (3.2-5.2); Albumin/Globulin Ratio 0.6 (1.0-2.3); Alkaline Phosphatase 123 U/L (39-117); Bilirubin,Direct 0.3 mg/dL (<0.3); Bilirubin,Total 0.7 mg/dL (0.1-1.0); Blood Urea Nitrogen 33 mg/dL (8-23); Calcium 8.2 mg/dL (8.6-10.4); Carbon Dioxide 28 mmol/L (22-30); Chloride 99 mmol/L (96-108); Globulin 3.9 gm/dL (2.2-3.7); Glomerular Filtration Rate 67; Glucose 138 mg/dL (70-105); Lactate Dehydrogenase 174 U/L (135-225); Phosphorous 3.5 mg/dL (2.5-4.5); Triglycerides 62 mg/dL (<150); Uric Acid 9.2 mg/dL (2.5-8.0)
[2021-06-04] MEDS ORDERED: MAGNESIUM SULFATE 2 GM/50 ML BAG IV ONE (07:59)
--- NOTE | 2021-06-04 08:02 | Internal Med Progress Note ---
SUBJECTIVE Subjective Patient information: Note initiated : 06/04/21 at 7:51 am Service Date, if different from initiated Date: [] Patient: Josr Davila 85 y/o M admitted on 06/03/21 for Shortness of breath. Chief Complaint: [] Interval history: History of present illness: Mr. Davila is a 85 year old M Who came in with shortness of breath. About 4-5 days ago patient developed upper respiratory infection symptoms of increased mild cough and rhinorrhea. Over the course of the next days his cough became worse and was productive of yellow sputum. He became more short of breath. And also felt to have increasing wheeziness. This morning and his daughter saw him and he seemed quite lethargic and confused and was brought in the ED and found to be in 80s on room air. He does have history of COPD and was prescribed oxygen but does not wear it at home. In the ED is found to be hyper toxic and hypercapnic with a CO2 of 85-94 and a pH of 7.22-7.25. He is placed on BiPAP with improvement in his breathing alertness. Patient was also hypotensive when he came in in the 70s systolic which came up quickly with IV fluid. No leukocytosis or fevers. Lactate was quite high at 5. Likely with COPD exacerbation. Factious source unremarkable this time. Chest x-ray unremarkable. Other labs include a mild hyponatremia borderline high hyperkalemia. Creatinine elevated. 06/04 Patient feeling better today. Now on nasal cannula. Flu a positive and started on Tamiflu. Magnesium low. Creatinine improved. BUN still elevated. Review of Systems: denies headache/fever/chills/nausea/vomiting/chest or abdominal pain/diarrhea. Otherwise see above. Constitutional Vitals: Vital Signs Temp Pulse Resp BP Pulse Ox 97.6 F 90 16 105/76 93 06/03/21 16:06 06/04/21 07:44 06/04/21 07:44 06/04/21 06:01 06/04/21 07:44 Period Temp Pulse Resp BP Sys/Seay Pulse Ox Last 24 Hr 97.6 F-97.6 F 30-125 14-34 53-131/26-87 90-100 Intake and Output 06/03/21 06/04/21 06/04/21 21:59 05:59 13:59 Intake Total 1850 200 Output Total 750 650 Balance 1100 -450 Weight 101.86 kg Intake & Output: Intake & Output 06/03/21 06/04/21 06/04/21 21:59 05:59 13:59 Intake Total 1850 200 Output Total 750 650 Balance 1100 -450 Weight 101.86 kg Intake: IV 1850 Sodium Chloride 0.9% 1,000 ml @ 1000 Wide Open IV BOLUS ONE Rx#: [id number] Zithromax 500 mg In Dextrose 5% 250 in Water 250 ml @ 250 mls/hr IV Q24H [facility] Rx#:[id number] Lactated Ringers 250 ml @ Wide 250 Open IV BOLUS ONE Rx#: [id number] Vancomycin 1,000 mg In Sodium 250 Chloride 0.9% 250 ml @ 250 mls/ hr IV ONCE ONE Rx#:[id number] Oral 200 Output: Urine Catheter Amount 350 500 Void Amount 400 150 Uretheral ([place]) 400 Other: Urine Appearance Clear Clear Uretheral ([facility]) Clear Clear Urine Color Bright Yellow Bright Yellow Uretheral ([facility]) Bright Yellow Bright Yellow Urine Odor Normal Normal Exam: General: More awake now, no acute Distress, obese Eyes/N/T: EOMI, Head/Neck: neck supple, CV: RRR, No murmurs, Pulm: clear, no wheezing today Abd: soft, nontender, +BS x4 Ext: no clubbing/cyanosis, chronic venous stasis and edema b/l LE Neuro: Alert, no focal deficits, moves all extremities, Skin: warm/dry OBJ DATA Labs CBC & Chem 7: 06/03/21 11:35 06/04/21 06:05 Labs: Abnormal Lab Results 06/04/21 06/04/21 06/03/21 06:05 06:05 14:03 RBC [place] % (Auto) Lymph # (Auto) [place] # (Auto) POC PT PT 22.0 H POC INR INR 1.8 H D-Dimer VBG Lactic Acid Sodium Potassium POC Chloride Chloride POC Total CO2 POC BUN BUN 33 H Creatinine POC Creatinine Glucose 138 H POC Glucose Hemoglobin A1c Uric Acid 9.2 H Calcium 8.2 L Magnesium 1.5 L Total Bilirubin Direct Bilirubin 0.3 H Alkaline Phosphatase 123 H Ammonia NT-Pro-B Natriuret Pep Albumin 2.4 L Globulin 3.9 H Albumin/Globulin Ratio 0.6 L Hyaline Casts 24 H Urine Mucus Few A 06/03/21 06/03/21 06/03/21 11:59 11:59 11:55 RBC [place] % (Auto) Lymph # (Auto) [place] # (Auto) POC PT 20.8 H PT POC INR 1.8 H INR D-Dimer 2.30 H VBG Lactic Acid Sodium Potassium POC Chloride Chloride POC Total CO2 POC BUN BUN Creatinine POC Creatinine Glucose POC Glucose Hemoglobin A1c 7.5 H Uric Acid Calcium Magnesium Total Bilirubin Direct Bilirubin Alkaline Phosphatase Ammonia NT-Pro-B Natriuret Pep Albumin Globulin Albumin/Globulin Ratio Hyaline Casts Urine Mucus 06/03/21 06/03/21 06/03/21 11:35 11:35 11:35 RBC [place] % (Auto) Lymph # (Auto) [place] # (Auto) POC PT PT 20.4 H POC INR INR 1.7 H D-Dimer VBG Lactic Acid Sodium Potassium POC Chloride 94 L Chloride POC Total CO2 31 H POC BUN 38 H BUN Creatinine POC Creatinine 1.5 H Glucose POC Glucose 286 H Hemoglobin A1c Uric Acid Calcium Magnesium Total Bilirubin Direct Bilirubin Alkaline Phosphatase Ammonia 69 H NT-Pro-B Natriuret Pep Albumin Globulin Albumin/Globulin Ratio Hyaline Casts Urine Mucus 06/03/21 06/03/21 06/03/21 11:35 11:35 11:35 RBC 4.49 L [place] % (Auto) 12.6 H Lymph # (Auto) 1.45 L [place] # (Auto) 0.97 H POC PT PT POC INR INR D-Dimer VBG Lactic Acid 5.0 H* Sodium 131 L Potassium 5.2 H POC Chloride Chloride 90 L POC Total CO2 POC BUN BUN 36 H Creatinine 1.4 H POC Creatinine Glucose 270 H POC Glucose Hemoglobin A1c Uric Acid Calcium Magnesium Total Bilirubin 1.3 H Direct Bilirubin Alkaline Phosphatase 135 H Ammonia NT-Pro-B Natriuret Pep 1951.0 H Albumin Globulin 4.3 H Albumin/Globulin Ratio 0.8 L Hyaline Casts Urine Mucus Meds: Medications Acetaminophen (Acetaminophen 325 Mg Tablet) 650 mg PO Q6HP PRN; Protocol PRN Reason: Per Pain Protocol/Fever > 101 Acetaminophen/Codeine Phosphate (Acetaminophen W/Codeine #3 1 Tablet) 1 tab PO HSP PRN; Protocol PRN Reason: headache/pain Albuterol/Ipratropium (Ipratropium/Albuterol 3 Ml Ampul.Neb) 3 ml NEB Q6HRT HERMILO Stop: 06/05/21 13:01 Last Admin: 06/04/21 07:41 Dose: 3 ml Documented by: Albuterol/Ipratropium (Ipratropium/Albuterol 3 Ml Ampul.Neb) 3 ml NEB Q4HP PRN PRN Reason: Shortness Of Breath Dextrose (Dextrose 50% 50 Ml Vial) 0 ml IV UD PRN PRN Reason: Per Sliding Scale Diagnostic Test (Pha) (Accu-Chek 1 Each Strip) 1 each FS [facility] Last Admin: 06/03/21 21:20 Dose: 1 each Documented by: Glucose (Dextrose 31 Gm Oral.Susp) 15 gm PO PRN PRN PRN Reason: Hypoglycemia Potassium Chloride 40 meq/ (Dextrose) 520 mls @ 130 mls/hr IV UD PRN PRN Reason: Potassium < 3 Magnesium Sulfate (Magnesium Sulfate) 2 gm in 50 mls @ 50 mls/hr IV UD PRN PRN Reason: Magnesium </= 1.6 Azithromycin 500 mg/ Dextrose 250 mls @ 250 mls/hr IV Q24H [facility]; Protocol Stop: 06/05/21 17:19 Last Infusion: 06/03/21 21:35 Dose: Infused Documented by: Insulin Glargine (Insulin Glargine, Human 1 Unit/0.01 Ml) 24 unit SQ QDAY [facility] Last Admin: 06/03/21 22:26 Dose: 24 units Documented by: Insulin Human Lispro (Insulin Lispro 1 Unit/0.01 Ml Unit) 0 unit SQ [facility]; Protocol Last Admin: 06/03/21 21:34 Dose: 4 units Documented by: Loratadine (Loratadine 10 Mg Tablet) 10 mg PO HSP PRN PRN Reason: Allergic Reaction Methylprednisolone Sodium Succinate (Methylprednisolone Sod Succ 125 Mg/2 Ml Vial) 62.5 mg IV Q8 [facility] Last Admin: 06/04/21 05:16 Dose: 62.5 mg Documented by: Metoclopramide HCl (Metoclopramide 10 Mg/2 Ml Vial) 10 mg IV Q6HP PRN PRN Reason: Nausea And Vomiting Metoprolol Tartrate (Metoprolol Tartrate 5 Mg/5 Ml Vial) 5 mg IV Q2HP PRN PRN Reason: Tachyarrhythmias HR>110 Ondansetron HCl (Ondansetron 4 Mg/2 Ml Vial) 4 mg IV Q4HP PRN PRN Reason: Nausea And Vomiting Oseltamivir Phosphate (Oseltamivir Phosphate 75 Mg Capsule) 75 mg PO BID [facility] Last Admin: 06/03/21 23:04 Dose: 75 mg Documented by: Pantoprazole Sodium (Pantoprazole 40 Mg Tablet) 40 mg PO QAMAC [facility] Polyethylene Glycol (Polyethylene Glycol 3350 17 Gm Packet) 17 gm PO DAILYP PRN PRN Reason: Constipation Potassium Chloride (Potassium Chloride 20 Meq Tablet) 40 meq PO UD PRN PRN Reason: Potssium is 3-3.5 Potassium Chloride (Potassium Chloride 20 Meq Tablet) 40 meq PO UD PRN PRN Reason: Potassium < 3 Senna (Sennosides 1 Tablet) 2 tab PO DAILYP PRN PRN Reason: Constipation Simvastatin (Simvastatin 40 Mg Tablet) 20 mg PO QPM [facility] Last Admin: 06/03/21 22:25 Dose: Not Given Documented by: Sitagliptin Phosphate (Sitagliptin 100 Mg Tablet) 100 mg PO QDAY [facility] Sodium Chloride (0.9 % Sodium Chloride 10 Ml Syringe) 10 ml IV Q8 [facility] Last Admin: 06/04/21 05:16 Dose: 10 ml Documented by: Warfarin Sodium (Warfarin Per Pharmacy) 1 order PO UD [facility] A/P Narrative A/P Narrative: A: *Acute hypoxic/hypercapnic respiratory failure: Likely 2/2 AECOPD -on bipap now on 2LNC -CXR neg *AECOPD (is prescribed home O2 but does not wear): likely triggered by Influenza A or HMPV *Flu A(+) & Human metapnpeumovirus(+): *Encephalopathy: 2/2 above, appears baseline now *Lactic acidosis: 2/2 above, resolved *Hypotension: Resolved in ED *Hyponatremia, mild: *Hyperkalemia, mild: *Hypomag: *A. fib: On BB/warfarin -INR subtherapeutic *JAZZMINE on CKD III: *HTN: On Coreg/lisinopril *DM w/neuropathy: A1c 7.5 *Venous stasis LE's: P: -O2 wean -steroids(wean), nebs, IS/Acapella -vbg and f/u lactate -Tamilfu -Empiric antibiotics -Follow-up electrolytes and renal function -Hold home torsemide -hold coreg/ACEI for low BP -basal and SSI, hold metformin -PT/OT -CM for placement needs -ppx: Warfarin per pharmacy, dose of lovenox yesterday Time Spent With Patient Time: Total time spent is greater than 50% in coordination of care (as documented) at patient's floor/unit and/or counseling patient: Total time spent with greater than 50% in coordination of care (as documented) at patient's floor/unit and/or counseling patient:: 25 - 35 minutes
[2021-06-04] MEDS: PANTOPRAZOLE 40 MG TABLET PO SCH (08:07)
[2021-06-04] MEDS: INSULIN GLARGINE, HUMAN 1 UNIT/0.01 ML SQ SCH (08:22)
[2021-06-04] MEDS: INSULIN LISPRO 1 UNIT/0.01 ML UNIT SQ SCH ×4 (08:22→22:04)
[2021-06-04] MEDS: sitaGLIPtin 100 MG TABLET PO SCH (08:23)
[2021-06-04] MEDS: OSELTAMIVIR PHOSPHATE 75 MG CAPSULE PO SCH ×2 (08:23→22:04)
[2021-06-04 08:51] LABS: ABG Methemoglobin 0.3 % (0.4-1.5); Total Hemoglobin 14.4 gm/Dl (13.5-16.5); VBG Base Excess 2 (-2-3); VBG HCO3 28.2 mmol/L (24.0-28.0); VBG Oxygen Saturation 93.4 % (40.0-70.0); VBG PCO2 51.3 mmHg (41.0-51.0); VBG PH 7.36 U (7.32-7.42); VBG Total CO2 29.8 mmol/L (25.0-29.0)
[2021-06-04] MEDS: AZITHROMYCIN 500 MG in DEXTROSE 5% IN WATER 250 ML IV SCH (12:48)
--- NOTE | 2021-06-04 13:40 | EKG ---
[facility] Test Date: 2021-06-03 Pat Name: Josr Davila Department: ED Room: Gender: Male [employer] Man: AW : [id number] Requested By: Jose Solis Order Number: [id number] Reading MD: Delfino Negrete Measurements Intervals [place] Rate: 102 P: [place]: QRS: 90 QRSD: 108 T: -43 QT: 360 QTc: 469 Interpretive Statements Atrial fibrillation Electronically Signed On 06-04-2021 13:40:00 PDT by Delfino Negrete /store/[email or web address]/[id number]
[2021-06-04] MEDS ORDERED: methylPREDNISolone SOD SUCC 125 MG/2 ML VIAL IV SCH (14:00)
--- NOTE | 2021-06-04 15:30 | Discharge Summary ---
Discharge Provider Provider Patient information: Note initiated : 06/04/21 at 3:28 pm Service Date, if different from initiated Date: [] Patient: Josr Davila 85 y/o M admitted on 06/03/21 for Shortness of breath. Chief Complaint: [] Date of admission: 06/03/21 15:56 Discharge date: 06/06/21 Primary care physician: MIRACLE Rogers Consults: 06/03/21 Consult to Physician [CONS] Stat Comment: Consulting Provider: Fortino Matias Reason For Exam: Physician to Consult Discharge Meds Discharge Medications Home Medications brimonidine 0.15 % eye drops 1 drp OPHTHALMIC BID ml 12/08/15 [History Confirmed 06/04/21 Last Taken Unknown] cyanocobalamin (vitamin B-12) 1,000 mcg tablet (Vitamin B-12) 1,000 mcg PO QDAY 12/08/15 [History Confirmed 06/03/21 Last Taken 06/03/21 08:00] simvastatin 40 mg tablet 20 mg PO QPM 12/08/15 [History Confirmed 06/03/21 Last Taken 06/02/21 21:00] timolol 0.5 % eye drops 1 drp OPHTHALMIC .QD ml 12/08/15 [History Confirmed 06/04/21 Last Taken Unknown] torsemide 20 mg tablet 20 mg PO QDAY 12/08/15 [History Confirmed 06/03/21 Last Taken 06/03/21 08:00] ergocalciferol (vitamin D2) 1,250 mcg (50,000 unit) capsule 50,000 unit PO QWEEK #10 cap 12/17/17 [Rx Confirmed 06/03/21 Last Taken 06/03/21 08:00] warfarin 2 mg tablet See Rx Instructions PO QDAY tab 06/11/18 [History Confirmed 06/04/21 Last Taken 06/03/21 08:00] carvedilol 3.125 mg tablet 6.25 mg PO BID tab 12/18/18 [History Confirmed 06/03/21 Last Taken 06/03/21 08:00] insulin glargine 100 unit/mL subcutaneous solution 24 unit SUB-Q QDAY ml 12/18/18 [History Confirmed 06/03/21 Last Taken 06/02/21] lisinopril 2.5 mg tablet 2.5 mg PO QDAY 12/18/18 [History Confirmed 06/03/21 Last Taken 06/02/21 08:00] acetaminophen 300 mg-codeine 30 mg tablet 1 tab PO HS 06/03/21 [History Confirmed 06/03/21 Last Taken Unknown] loratadine 10 mg tablet (Allergy Relief (loratadine)) 10 mg PO HS 06/03/21 [History Confirmed 06/03/21 Last Taken 06/02/21 21:00] sitagliptin 100 mg tablet (Januvia) 1 tab PO QDAY 06/03/21 [History Confirmed 06/03/21 Last Taken 06/03/21 08:00] oseltamivir 75 mg capsule (Tamiflu) 75 mg PO BID 3 Days #6 cap 06/04/21 [Rx Last Taken Unknown] prednisone 10 mg tablet 40 mg PO QDAY #1 tab 06/04/21 [Rx Last Taken Unknown] albuterol sulfate 90 mcg/actuation aerosol inhaler 2 puff INHALATION Q6H PRN #8.5 g 06/06/21 [Rx Last Taken Unknown] COURSE Hospital Course Hospital course: History of present illness: Mr. Davila is a 85 year old M Who came in with shortness of breath. About 4-5 days ago patient developed upper respiratory infection symptoms of increased mild cough and rhinorrhea. Over the course of the next days his cough became worse and was productive of yellow sputum. He became more short of breath. And also felt to have increasing wheeziness. This morning and his daughter saw him and he seemed quite lethargic and confused and was brought in the ED and found to be in 80s on room air. He does have history of COPD and was prescribed oxygen but does not wear it at home. In the ED is found to be hyper toxic and hypercapnic with a CO2 of 85-94 and a pH of 7.22-7.25. He is placed on BiPAP with improvement in his breathing alertness. Patient was also hypotensive when he came in in the 70s systolic which came up quickly with IV fluid. No leukocytosis or fevers. Lactate was quite high at 5. Likely with COPD exacerbation. Factious source unremarkable this time. Chest x-ray unremarkable. Other labs include a mild hyponatremia borderline high hyperkalemia. Creatinine elevated. 06/04 Patient feeling better today. Now on nasal cannula. Flu a positive and started on Tamiflu. Magnesium low. Creatinine improved. BUN still elevated. 06/05 Patient is on 3 L nasal cannula this morning but good sats. Patient feels like his breathing is close to baseline. Occasional cough. Patient does state he was prescribed oxygen at home but does not wear. He does not check his home oxygen. 06/06 Patient on 2 L with sats mid 90s, will decrease O2 to keep low 90s. Instruction on use of home oxygen as previously prescribed. patient high risk for readmission given age and comorbidities *Acute hypoxic/hypercapnic respiratory failure: Likely 2/2 AECOPD *AECOPD (is prescribed home O2 but does not wear): likely triggered by Influenza A or HMPV *Flu A(+) & Human metapnpeumovirus(+): *Encephalopathy: 2/2 above, appears baseline now *Lactic acidosis: 2/2 above, resolved *Hypotension: Resolved in ED *Hyponatremia, mild: *Hyperkalemia, mild: *Hypomag: *A. 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 fib acute kidney injury hypertension diabetes venous stasis Time Spent with Patient Time attestation: Total time spent providing and/or coordinating discharge services: Time spent: Greater than 30 minutes EXAM Constitutional Vitals: Temp Pulse Resp BP Pulse Ox 97.1 F 96 H 18 139/71 94 06/04/21 13:45 06/04/21 14:09 06/04/21 14:09 06/04/21 13:45 06/04/21 14:09 Discharge Data Data Completed and Pending Labs on day of discharge: Labs from last 24 hours 06/04/21 06/04/21 06/04/21 08:26 06:05 06:05 PT 22.0 H INR 1.8 H D-Dimer ABG Methemoglobin 0.3 L VBG pH 7.36 VBG pCO2 51.3 H VBG pO2 89.0 H VBG HCO3 28.2 H VBG Total CO2 29.8 H VBG O2 Saturation 93.4 H VBG Base Excess 2 VBG Lactic Acid 0.9 Carboxyhemoglobin 3.4 H Total Hemoglobin 14.4 Sodium Potassium Chloride Carbon Dioxide Anion Gap BUN Creatinine GFR Calculation Glucose Hemoglobin A1c Estim Average Glucose Uric Acid Calcium Phosphorus Magnesium Total Bilirubin Direct Bilirubin GGT AST ALT Alkaline Phosphatase Lactate Dehydrogenase Total Protein Albumin Globulin Albumin/Globulin Ratio Triglycerides 06/04/21 06/03/21 06/03/21 06:05 11:59 11:59 PT INR D-Dimer 2.30 H ABG Methemoglobin VBG pH VBG pCO2 VBG pO2 VBG HCO3 VBG Total CO2 VBG O2 Saturation VBG Base Excess VBG Lactic Acid Carboxyhemoglobin Total Hemoglobin Sodium 135 Potassium 4.5 Chloride 99 Carbon Dioxide 28 Anion Gap 8.0 BUN 33 H Creatinine 1.0 GFR Calculation 67 Glucose 138 H Hemoglobin A1c 7.5 H Estim Average Glucose 169 Uric Acid 9.2 H Calcium 8.2 L Phosphorus 3.5 Magnesium 1.5 L Total Bilirubin 0.7 Direct Bilirubin 0.3 H GGT 45 AST 33 ALT 29 Alkaline Phosphatase 123 H Lactate Dehydrogenase 174 Total Protein 6.3 Albumin 2.4 L Globulin 3.9 H Albumin/Globulin Ratio 0.6 L Triglycerides 62 Preliminary micro results at discharge 06/03/21 12:00 Blood Culture - Preliminary Blood 06/03/21 11:40 Blood Culture - Preliminary Blood Discharge Plan Patient/Caregiver Discharge Instructions Activity: increase activity as tolerated Diet: Consistent Carbohydrate Activity Restrictions/Additional Instructions: Use your home oxygen. Also monitor your oxygen saturations several times a day and keep a log and bring to PCP. Take your blood pressure twice daily and keep a log. If your systolic blood pressure is less than 110 consistently then call your PCP. Prescriptions: New prednisone 10 mg tablet 40 mg PO QDAY Qty: 1 0RF Rx Instructions: Take 40mg once daily for 2 days then 30mg daily x2 days then 20mg x2 days then 10mg x2 days then 5mg x2 days then stop oseltamivir [Tamiflu] 75 mg capsule 75 mg PO BID 3 Days Qty: 6 0RF albuterol sulfate 90 mcg/actuation HFA aerosol inhaler 2 puff inhalation Q6H PRN (Reason: shortness of breath or wheezing) Qty: 8.5 0RF Continued torsemide 20 mg tablet 20 mg PO QDAY 0RF timolol 0.5 % drops 1 drp OPHTHALMIC .QD 0RF brimonidine 0.15 % drops 1 drp OPHTHALMIC BID 0RF cyanocobalamin (vitamin B-12) [Vitamin B-12] 1,000 mcg tablet 1,000 mcg PO QDAY 0RF simvastatin 40 mg tablet 20 mg PO QPM 0RF warfarin 2 mg tablet See Rx Instructions PO QDAY 0RF Label Comments: take as directed PO QDAY Rx Instructions: 3mg/day Friday thru , 4mg Friday only carvedilol 3.125 mg tablet 6.25 mg PO BID 0RF ergocalciferol (vitamin D2) 50,000 unit capsule 50,000 unit PO QWEEK Qty: 10 5RF insulin glargine 100 unit/mL solution 24 unit SUB-Q QDAY 0RF lisinopril 2.5 mg tablet 2.5 mg PO QDAY 0RF acetaminophen-codeine 300-30 mg tablet 1 tab PO HS 0RF Januvia 100 mg tablet 1 tab PO QDAY 0RF loratadine [Allergy Relief (loratadine)] 10 mg Tablet 10 mg PO HS 0RF Other Ambulatory Orders: Prothrombin Time INR (Routine) Timeframe: 3 Days Facility: [facility] - Location: Laboratory Ordered By: Fortino Matias Follow Up Plan Follow up with: Fabian Manuel ARNP [Primary Care Provider] - Patient Disposition: Xfer [facility] Prognosis: Undetermined Overall status at discharge: patient is progressing back to baseline Discharge Orders: Discharge Order (Routine); Ordered 06/06/21 Ordered By: Fortino Matias
[2021-06-04] MEDS ORDERED: WARFARIN 2 MG TABLET PO ONE (16:00)
[2021-06-04] MEDS: SIMVASTATIN 40 MG TABLET PO SCH (22:04)
[2021-06-04] MEDS: predniSONE 20 MG TABLET PO SCH (22:04)
[2021-06-05] MEDS: IPRATROPIUM/ALBUTEROL 3 ML AMPUL.NEB NEB SCH ×3 (00:47→12:33)
[2021-06-05] MEDS: 0.9 % SODIUM CHLORIDE 10 ML SYRINGE IV SCH ×3 (05:41→22:09)
[2021-06-05 07:01] LABS: INR 2.3 (0.9-1.1); Prothrombin Time 26.6 sec (11.9-14.5)
[2021-06-05 07:22] LABS: ALT/SGPT 23 U/L (<40); AST/SGOT 20 U/L (<40); Albumin 2.7 gm/dL (3.2-5.2); Albumin/Globulin Ratio 0.7 (1.0-2.3); Alkaline Phosphatase 114 U/L (39-117); Bilirubin,Direct 0.2 mg/dL (<0.3); Bilirubin,Total 0.5 mg/dL (0.1-1.0); Blood Urea Nitrogen 30 mg/dL (8-23); Calcium 8.6 mg/dL (8.6-10.4); Carbon Dioxide 30 mmol/L (22-30); Chloride 101 mmol/L (96-108); Globulin 3.8 gm/dL (2.2-3.7); Glomerular Filtration Rate 76; Glucose 176 mg/dL (70-105); Lactate Dehydrogenase 178 U/L (135-225); Phosphorous 2.7 mg/dL (2.5-4.5); Triglycerides 72 mg/dL (<150); Uric Acid 8.9 mg/dL (2.5-8.0)
--- NOTE | 2021-06-05 07:31 | Internal Med Progress Note ---
SUBJECTIVE Subjective Patient information: Note initiated : 06/05/21 at 7:28 am Service Date, if different from initiated Date: [] Patient: Josr Davila 85 y/o M admitted on 06/03/21 for Shortness of breath. Chief Complaint: [] Interval history: History of present illness: Mr. Davila is a 85 year old M Who came in with shortness of breath. About 4-5 days ago patient developed upper respiratory infection symptoms of increased mild cough and rhinorrhea. Over the course of the next days his cough became worse and was productive of yellow sputum. He became more short of breath. And also felt to have increasing wheeziness. This morning and his daughter saw him and he seemed quite lethargic and confused and was brought in the ED and found to be in 80s on room air. He does have history of COPD and was prescribed oxygen but does not wear it at home. In the ED is found to be hyper toxic and hypercapnic with a CO2 of 85-94 and a pH of 7.22-7.25. He is placed on BiPAP with improvement in his breathing alertness. Patient was also hypotensive when he came in in the 70s systolic which came up quickly with IV fluid. No leukocytosis or fevers. Lactate was quite high at 5. Likely with COPD exacerbation. Factious source unremarkable this time. Chest x-ray unremarkable. Other labs include a mild hyponatremia borderline high hyperkalemia. Creatinine elevated. 06/04 Patient feeling better today. Now on nasal cannula. Flu a positive and started on Tamiflu. Magnesium low. Creatinine improved. BUN still elevated. 06/05 Patient is on 3 L nasal cannula this morning but good sats. Patient feels like his breathing is close to baseline. Occasional cough. Patient does state he was prescribed oxygen at home but does not wear. He does not check his home oxygen. Review of Systems: denies headache/fever/chills/nausea/vomiting/chest or abdominal pain/diarrhea. Otherwise see above. Constitutional Vitals: Vital Signs Temp Pulse Resp BP Pulse Ox 97.5 F 97 H 20 118/63 96 06/05/21 03:53 06/05/21 03:53 06/05/21 03:53 06/05/21 03:53 06/05/21 03:53 Period Temp Pulse Resp BP Sys/Seay Pulse Ox Last 24 Hr 97.1 F-98.1 F 70-100 13-26 87-134/58-72 89-96 Intake and Output 06/04/21 06/05/21 06/05/21 21:59 05:59 13:59 Intake Total 960 250 Output Total 800 Balance 160 250 Weight 101.35 kg Intake & Output: Intake & Output 06/04/21 06/05/21 06/05/21 21:59 05:59 13:59 Intake Total 960 250 Output Total 800 Balance 160 250 Weight 101.35 kg Intake: IV 250 Zithromax 500 mg In Dextrose 5% 250 in Water 250 ml @ 250 mls/hr IV Q24H [facility] Rx#:[id number] Oral 960 Output: Urine Catheter Amount 800 Other: Urine Appearance Clear Urine Color Dark Doris Exam: General: alert, no acute Distress, obese Eyes/N/T: EOMI, Head/Neck: neck supple, CV: RRR, No murmurs, Pulm: mild b/l rhonchi, no wheezing today Abd: soft, nontender, +BS x4 Ext: no clubbing/cyanosis, chronic venous stasis and edema b/l LE Neuro: Alert, no focal deficits, moves all extremities, Skin: warm/dry OBJ DATA Labs CBC & Chem 7: 06/03/21 11:35 06/05/21 05:48 Labs: Abnormal Lab Results 06/05/21 06/05/21 06/04/21 05:48 05:48 08:26 RBC [place] % (Auto) Lymph # (Auto) [place] # (Auto) POC PT PT 26.6 H POC INR INR 2.3 H D-Dimer ABG Methemoglobin 0.3 L VBG pCO2 51.3 H VBG pO2 89.0 H VBG HCO3 28.2 H VBG Total CO2 29.8 H VBG O2 Saturation 93.4 H VBG Lactic Acid Carboxyhemoglobin 3.4 H Sodium Potassium POC Chloride Chloride POC Total CO2 Anion Gap 6.0 L POC BUN BUN 30 H Creatinine POC Creatinine Glucose 176 H POC Glucose Hemoglobin A1c Uric Acid 8.9 H Calcium Magnesium Total Bilirubin Direct Bilirubin Alkaline Phosphatase Ammonia NT-Pro-B Natriuret Pep Albumin 2.7 L Globulin 3.8 H Albumin/Globulin Ratio 0.7 L Hyaline Casts Urine Mucus 06/04/21 06/04/21 06/03/21 06:05 06:05 14:03 RBC [place] % (Auto) Lymph # (Auto) [place] # (Auto) POC PT PT 22.0 H POC INR INR 1.8 H D-Dimer ABG Methemoglobin VBG pCO2 VBG pO2 VBG HCO3 VBG Total CO2 VBG O2 Saturation VBG Lactic Acid Carboxyhemoglobin Sodium Potassium POC Chloride Chloride POC Total CO2 Anion Gap POC BUN BUN 33 H Creatinine POC Creatinine Glucose 138 H POC Glucose Hemoglobin A1c Uric Acid 9.2 H Calcium 8.2 L Magnesium 1.5 L Total Bilirubin Direct Bilirubin 0.3 H Alkaline Phosphatase 123 H Ammonia NT-Pro-B Natriuret Pep Albumin 2.4 L Globulin 3.9 H Albumin/Globulin Ratio 0.6 L Hyaline Casts 24 H Urine Mucus Few A 06/03/21 06/03/21 06/03/21 11:59 11:59 11:55 RBC [place] % (Auto) Lymph # (Auto) [place] # (Auto) POC PT 20.8 H PT POC INR 1.8 H INR D-Dimer 2.30 H ABG Methemoglobin VBG pCO2 VBG pO2 VBG HCO3 VBG Total CO2 VBG O2 Saturation VBG Lactic Acid Carboxyhemoglobin Sodium Potassium POC Chloride Chloride POC Total CO2 Anion Gap POC BUN BUN Creatinine POC Creatinine Glucose POC Glucose Hemoglobin A1c 7.5 H Uric Acid Calcium Magnesium Total Bilirubin Direct Bilirubin Alkaline Phosphatase Ammonia NT-Pro-B Natriuret Pep Albumin Globulin Albumin/Globulin Ratio Hyaline Casts Urine Mucus 06/03/21 06/03/21 06/03/21 11:35 11:35 11:35 RBC [place] % (Auto) Lymph # (Auto) [place] # (Auto) POC PT PT 20.4 H POC INR INR 1.7 H D-Dimer ABG Methemoglobin VBG pCO2 VBG pO2 VBG HCO3 VBG Total CO2 VBG O2 Saturation VBG Lactic Acid Carboxyhemoglobin Sodium Potassium POC Chloride 94 L Chloride POC Total CO2 31 H Anion Gap POC BUN 38 H BUN Creatinine POC Creatinine 1.5 H Glucose POC Glucose 286 H Hemoglobin A1c Uric Acid Calcium Magnesium Total Bilirubin Direct Bilirubin Alkaline Phosphatase Ammonia 69 H NT-Pro-B Natriuret Pep Albumin Globulin Albumin/Globulin Ratio Hyaline Casts Urine Mucus 06/03/21 06/03/21 06/03/21 11:35 11:35 11:35 RBC 4.49 L [place] % (Auto) 12.6 H Lymph # (Auto) 1.45 L [place] # (Auto) 0.97 H POC PT PT POC INR INR D-Dimer ABG Methemoglobin VBG pCO2 VBG pO2 VBG HCO3 VBG Total CO2 VBG O2 Saturation VBG Lactic Acid 5.0 H* Carboxyhemoglobin Sodium 131 L Potassium 5.2 H POC Chloride Chloride 90 L POC Total CO2 Anion Gap POC BUN BUN 36 H Creatinine 1.4 H POC Creatinine Glucose 270 H POC Glucose Hemoglobin A1c Uric Acid Calcium Magnesium Total Bilirubin 1.3 H Direct Bilirubin Alkaline Phosphatase 135 H Ammonia NT-Pro-B Natriuret Pep 1951.0 H Albumin Globulin 4.3 H Albumin/Globulin Ratio 0.8 L Hyaline Casts Urine Mucus Meds: Medications Acetaminophen (Acetaminophen 325 Mg Tablet) 650 mg PO Q6HP PRN; Protocol PRN Reason: Per Pain Protocol/Fever > 101 Acetaminophen/Codeine Phosphate (Acetaminophen W/Codeine #3 1 Tablet) 1 tab PO HSP PRN; Protocol PRN Reason: headache/pain Albuterol/Ipratropium (Ipratropium/Albuterol 3 Ml Ampul.Neb) 3 ml NEB Q6HRT [facility] Stop: 06/05/21 13:01 Last Admin: 06/05/21 00:47 Dose: 3 ml Documented by: Albuterol/Ipratropium (Ipratropium/Albuterol 3 Ml Ampul.Neb) 3 ml NEB Q4HP PRN PRN Reason: Shortness Of Breath Brimonidine Tartrate (Brimonidine Ophth Drops 1 Gtt Bottle 5ml) 1 gtt OU BID HERMILO Dextrose (Dextrose 50% 50 Ml Vial) 0 ml IV UD PRN PRN Reason: Per Sliding Scale Diagnostic Test (Pha) (Accu-Chek 1 Each Strip) 1 each FS ACHS [facility] Last Admin: 06/04/21 22:04 Dose: 1 each Documented by: Glucose (Dextrose 31 Gm Oral.Susp) 15 gm PO PRN PRN PRN Reason: Hypoglycemia Potassium Chloride 40 meq/ (Dextrose) 520 mls @ 130 mls/hr IV UD PRN PRN Reason: Potassium < 3 Magnesium Sulfate (Magnesium Sulfate) 2 gm in 50 mls @ 50 mls/hr IV UD PRN PRN Reason: Magnesium </= 1.6 Azithromycin 500 mg/ Dextrose 250 mls @ 250 mls/hr IV Q24H [facility]; Protocol Stop: 06/05/21 17:19 Last Infusion: 06/05/21 06:56 Dose: Infused Documented by: Insulin Glargine (Insulin Glargine, Human 1 Unit/0.01 Ml) 24 unit SQ QDAY [facility] Last Admin: 06/04/21 08:22 Dose: 24 units Documented by: Insulin Human Lispro (Insulin Lispro 1 Unit/0.01 Ml Unit) 0 unit SQ ACHS [facility]; Protocol Last Admin: 06/04/21 22:04 Dose: 4 units Documented by: Loratadine (Loratadine 10 Mg Tablet) 10 mg PO HSP PRN PRN Reason: Allergic Reaction Metoclopramide HCl (Metoclopramide 10 Mg/2 Ml Vial) 10 mg IV Q6HP PRN PRN Reason: Nausea And Vomiting Metoprolol Tartrate (Metoprolol Tartrate 5 Mg/5 Ml Vial) 5 mg IV Q2HP PRN PRN Reason: Tachyarrhythmias HR>110 Ondansetron HCl (Ondansetron 4 Mg/2 Ml Vial) 4 mg IV Q4HP PRN PRN Reason: Nausea And Vomiting Oseltamivir Phosphate (Oseltamivir Phosphate 75 Mg Capsule) 75 mg PO BID [facility] Last Admin: 06/04/21 22:04 Dose: 75 mg Documented by: Pantoprazole Sodium (Pantoprazole 40 Mg Tablet) 40 mg PO QAMAC [facility] Last Admin: 06/04/21 08:07 Dose: 40 mg Documented by: Polyethylene Glycol (Polyethylene Glycol 3350 17 Gm Packet) 17 gm PO DAILYP PRN PRN Reason: Constipation Potassium Chloride (Potassium Chloride 20 Meq Tablet) 40 meq PO UD PRN PRN Reason: Potssium is 3-3.5 Potassium Chloride (Potassium Chloride 20 Meq Tablet) 40 meq PO UD PRN PRN Reason: Potassium < 3 Prednisone (Prednisone 20 Mg Tablet) 40 mg PO BID [facility] Last Admin: 06/04/21 22:04 Dose: 40 mg Documented by: Senna (Sennosides 1 Tablet) 2 tab PO DAILYP PRN PRN Reason: Constipation Simvastatin (Simvastatin 40 Mg Tablet) 20 mg PO QPM [facility] Last Admin: 06/04/21 22:04 Dose: 20 mg Documented by: Sitagliptin Phosphate (Sitagliptin 100 Mg Tablet) 100 mg PO QDAY [facility] Last Admin: 06/04/21 08:23 Dose: 100 mg Documented by: Sodium Chloride (0.9 % Sodium Chloride 10 Ml Syringe) 10 ml IV Q8 [facility] Last Admin: 06/05/21 05:41 Dose: 10 ml Documented by: Timolol Maleate (Timolol 0.5% Ophth Drops Bottle 5ml) 1 gtt OU QDAY HERMILO Warfarin Sodium (Warfarin Per Pharmacy) 1 order PO UD HERMILO ABG Interpretation ABG results: 06/04/21 08:26 ABG Methemoglobin 0.3 L VBG pH 7.36 VBG pCO2 51.3 H VBG pO2 89.0 H VBG HCO3 28.2 H VBG Total CO2 29.8 H VBG O2 Saturation 93.4 H VBG Base Excess 2 A/P Narrative A/P Narrative: A: *Acute hypoxic/hypercapnic respiratory failure: Likely 2/2 AECOPD -bipap initially, now 1-2LNC -CXR neg *AECOPD (is prescribed home O2 but does not wear): likely triggered by Influenza A or HMPV *Flu A(+) & Human metapnpeumovirus(+): *Encephalopathy: 2/2 above, appears baseline now *Lactic acidosis: 2/2 above, resolved *Hypotension: Resolved in ED *Hyponatremia, mild: resolved *Hyperkalemia, mild: resolved *Hypomag: *A. 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
[2021-06-05] MEDS: PANTOPRAZOLE 40 MG TABLET PO SCH (07:39)
[2021-06-05] MEDS: INSULIN LISPRO 1 UNIT/0.01 ML UNIT SQ SCH ×4 (07:39→22:16)
[2021-06-05 08:35] LABS: ABG Methemoglobin 0.3 % (0.4-1.5); Total Hemoglobin 14.7 gm/Dl (13.5-16.5); VBG Base Excess 2 (-2-3); VBG HCO3 28.3 mmol/L (24.0-28.0); VBG Oxygen Saturation 86.4 % (40.0-70.0); VBG PH 7.37 U (7.32-7.42); VBG PO2 51.9 mmHg (25.0-40.0); VBG Total CO2 29.8 mmol/L (25.0-29.0)
[2021-06-05] MEDS: OSELTAMIVIR PHOSPHATE 75 MG CAPSULE PO SCH ×2 (08:59→22:09)
[2021-06-05] MEDS: predniSONE 20 MG TABLET PO SCH ×2 (08:59→22:08)
[2021-06-05] MEDS: sitaGLIPtin 100 MG TABLET PO SCH (08:59)
[2021-06-05] MEDS: TIMOLOL 0.5% OPHTH DROPS BOTTLE 5ML OU SCH (08:59)
[2021-06-05] MEDS: INSULIN GLARGINE, HUMAN 1 UNIT/0.01 ML SQ SCH (08:59)
[2021-06-05] MEDS: BRIMONIDINE OPHTH DROPS 1 GTT BOTTLE 5ML OU SCH ×2 (09:00→22:07)
[2021-06-05] MEDS ORDERED: BRIMONIDINE OPHTH DROPS 1 GTT BOTTLE 5ML OU SCH (09:00)
[2021-06-05] MEDS: AZITHROMYCIN 500 MG in DEXTROSE 5% IN WATER 250 ML IV SCH (10:30)
[2021-06-05] MEDS ORDERED: METOPROLOL SUCCINATE 25 MG TAB.XL.24H PO ONE (11:16)
[2021-06-05] MEDS ORDERED: WARFARIN 2 MG TABLET PO ONE (14:00)
[2021-06-05] MEDS: CARVEDILOL 3.125 MG TABLET PO SCH (16:49)
[2021-06-05] MEDS: SIMVASTATIN 40 MG TABLET PO SCH (22:08)
[2021-06-06] MEDS: 0.9 % SODIUM CHLORIDE 10 ML SYRINGE IV SCH (04:55)
[2021-06-06 06:57] LABS: INR 2.7 (0.9-1.1); Prothrombin Time 29.6 sec (11.9-14.5)
[2021-06-06] MEDS: INSULIN LISPRO 1 UNIT/0.01 ML UNIT SQ SCH ×2 (07:23→11:48)
[2021-06-06] MEDS: sitaGLIPtin 100 MG TABLET PO SCH (07:53)
[2021-06-06] MEDS: CARVEDILOL 3.125 MG TABLET PO SCH (07:53)
[2021-06-06] MEDS: PANTOPRAZOLE 40 MG TABLET PO SCH (07:53)
[2021-06-06] MEDS: OSELTAMIVIR PHOSPHATE 75 MG CAPSULE PO SCH (07:53)
[2021-06-06] MEDS: predniSONE 20 MG TABLET PO SCH (07:53)
[2021-06-06] MEDS: BRIMONIDINE OPHTH DROPS 1 GTT BOTTLE 5ML OU SCH (07:54)
[2021-06-06] MEDS: INSULIN GLARGINE, HUMAN 1 UNIT/0.01 ML SQ SCH (07:54)
[2021-06-06] MEDS: TIMOLOL 0.5% OPHTH DROPS BOTTLE 5ML OU SCH (07:54)
== END 2021-06-06 13:55 | disposition home health service (06) | DRG 189 ==
LOC: ED 11:23 → ICU 15:56 → MEDSUR 06-04 13:23
PROVIDERS: ADMIT Internal Medicine; ATTEND Internal Medicine